=== PATIENT | female | born 1980 | race Asian ===

== ENCOUNTER → 2017-03-13 | Outpatient (CLI) | payer OTHER ==
[~2017-03-13] MED LIST: ACET-66 PO; DSS100 PO; FERR-89 PO; IBUP-2071 PO; PREN1TAB80 PO
== END | disposition home or self-care (01) ==
LOC: RADMN 12:29
PROVIDERS: ATTEND Obstetrics & Gynecology
DX: Z34.83 Encounter for supervision of other normal pregnancy, third trimester (principal); Z3A.39 39 weeks gestation of pregnancy
CPT/HCPCS: 76805